=== PATIENT | male | born 1955 | race Caucasian/White ===

== ENCOUNTER 2016-08-21 06:59 | Day surgery (SDC) | payer BC, OTHER ==
[2016-08-20 11:01] VITALS: BMI 30.1
[2016-08-21] MEDS ORDERED: PROPOFOL 20 ML ONE ×2 (07:01)
[2016-08-21 08:21] VITALS: TEMP 98
[2016-08-21 08:43] VITALS: BP 114/66; PULSE 80
== END 2016-08-21 08:45 | disposition home or self-care (01) ==
LOC: FASU-ENDO 06:59
PROVIDERS: ATTEND Internal Medicine Gastroenterology
PROC: 0DBK8ZX Excision of Ascending Colon, Via Natural or Artificial Opening Endoscopic, Diagnostic (ICD-10-PCS; principal; 2016-08-21 07:48)
DX: Z86.010 Personal history of colon polyps (principal); Z80.0 Family history of malignant neoplasm of digestive organs; D12.2 Benign neoplasm of ascending colon; K57.30 Diverticulosis of large intestine without perforation or abscess without bleeding; K64.8 Other hemorrhoids
CPT/HCPCS: 88305-TC

== ENCOUNTER 2022-01-23 07:24 | Day surgery (SDC) | payer BC ==
[2022-01-21 15:44] VITALS: BMI 26.8
[2022-01-23] MEDS ORDERED: PROPOFOL 80 ML ONE (08:04)
[2022-01-23 08:45] VITALS: RESP 16; TEMP 97.9
[2022-01-23 09:50] VITALS: BP 114/71; PULSE 65
== END 2022-01-23 09:10 | disposition home or self-care (01) ==
LOC: FASU-ENDO 07:24
PROVIDERS: ATTEND Internal Medicine Gastroenterology
PROC: 0DBL8ZX Excision of Transverse Colon, Via Natural or Artificial Opening Endoscopic, Diagnostic (ICD-10-PCS; 2022-01-23)
PROC: 0DBK8ZX Excision of Ascending Colon, Via Natural or Artificial Opening Endoscopic, Diagnostic (ICD-10-PCS; principal; 2022-01-23 08:15)
DX: Z12.11 Encounter for screening for malignant neoplasm of colon (principal); Z86.010 Personal history of colon polyps; Z83.71 Family history of colonic polyps; Z80.0 Family history of malignant neoplasm of digestive organs; K57.30 Diverticulosis of large intestine without perforation or abscess without bleeding; D12.2 Benign neoplasm of ascending colon; D12.3 Benign neoplasm of transverse colon
CPT/HCPCS: 88305-TC